=== PATIENT | male | born 1950 | race Caucasian/White ===

== ENCOUNTER 2017-01-29 15:43 | Inpatient (IN) ==
[2017-01-29] MEDS ORDERED: ZOFRAN IV ONE (16:01)
[2017-01-29] MEDS ORDERED: ZOFRAN ONE (16:01)
[2017-01-29] MEDS ORDERED: DUONEB (A & A) INH ONE (16:14)
[2017-01-29] MEDS ORDERED: ATIVAN IV ONE (16:14)
[2017-01-29] MEDS ORDERED: NS 1,000 ML IV ONE ×3 (16:14→19:43)
[2017-01-29] MEDS ORDERED: SOLU-MEDROL IV ONE (16:14)
[2017-01-29 16:45] LABS: BE -6.9 mmoll (-3.0-3.0); BLOOD TYPE ARTERIAL; DRAW SITE R BRACHIAL; O2(CT) 20.2 mL/dL (15.0-23.0); PCO2(98.6) 29 mmHg (35-45); PO2(98.6) 58 mmHg (60-100); SAMPLE BLOOD; pH(98.6) 7.37 (7.35-7.45)
[2017-01-29 16:47] LABS: ALLEN TEST NO; MODALITY CANNULA
[2017-01-29 16:56] LABS: AGAP 16; ALBUMIN 3.8 g/dL (3.5-5.0); ALKALINE PHOSPHATASE 72 U/L (32-122); BUN 14 mg/dL (8-22); CALCIUM 9.3 mg/dL (8.8-10.2); CHLORIDE 102 mmol/L (98-107); CK PROFILE 70 U/L (24-204); COSMO 280; GOT 27 U/L (10-34); GPT 14 U/L (10-44); POTASSIUM 3.2 mmol/L (3.5-5.1); SODIUM 140 mmol/L (136-145); TCO2 22 mmol/L (25-35)
--- NOTE | 2017-01-29 16:57 | EKG Report ---
Test Performed on : 01/29/2017 4:45:58 PM Test Reason : AMS Blood Pressure : / mmHG Vent. Rate : 084 BPM Atrial Rate : 084 BPM P-R Int : 158 ms QRS Dur : 110 ms QT Int : 400 ms P-R-T Axes : 050 024 113 degrees QTc Int : 472 ms Normal sinus rhythm. Nonspecific ST and T wave abnormality Prolonged QT Abnormal ECG No previous ECGs available Unconfirmed Result
[2017-01-29 17:04] LABS: EOS# 0.01 X1000 (0.0-0.7); EOS% 1.5 % (0.0-10.0); HEMATOCRIT 48.8 % (42.0-52.0); LYMPH# 0.24 X1000 (1.2-3.4); LYMPH% 36.9 % (20.5-51.1); MANUAL DIFF NEEDED? YES; MCH 29.3 PG (27-31); MCHC 32.8 g/dL (33-37); MCV 89.4 FL (81-99); MPV 11.7 FL (7.4-10.4); NEUT% 61.6 % (42.2-75.2); PLT 147 X1000 (130-400); RBC 5.46 XMIL (4.7-6.1)
[2017-01-29 17:07] LABS: INR 1.12 (0.86-1.15); PROTIME 14.7 Seconds (12.1-15.5)
[2017-01-29 17:08] LABS: PTT PL 27.7 Seconds (22.6-43.9)
--- NOTE | 2017-01-29 17:21 | Diag Imaging Result Doc PS360 ---
EXAM: CHEST-PORTABLE HISTORY: cough, chills TECHNIQUE: Portable COMPARISON: None FINDINGS: Sternal wires are present. Heart is not enlarged. There is increased density in the mid and lower left lung. No pleural effusions identified. IMPRESSION: Questionable small left lower lung infiltrate. Follow-up PA and lateral recommended. Electronically signed by Sekou Oliveira 01/29/2017 5:18 PM
[2017-01-29] MEDS ORDERED: VANCOMYCIN 1 GM/NS 1 GM/250 ML IVPB IV ONE (17:26)
[2017-01-29] MEDS ORDERED: ZOSYN 3.375 GM/NS 3.375 GM/50 ML IVPB IV ONE (17:26)
[2017-01-29 18:55] LABS: BANDS 20 % (0-1); LYMPHS 60 % (21-51)
--- NOTE | 2017-01-29 19:11 | Diag Imaging Result Doc PS360 ---
EXAM: ABD/PELVIS/PULM ARTERIES HISTORY: SOB/cough up blood. I am unsure as to the clinical information for the abdomen and pelvis. TECHNIQUE: CT chest with contrast. CT abdomen and pelvis with intravenous contrast. COMPARISON: None. FINDINGS: Chest: Sternal wires are present. The heart is not enlarged. No pleural effusions. No thoracic dissection. Normal opacification of the pulmonary arteries and their major branches. There are small mediastinal lymph nodes. No consolidation. No bronchiectasis. Abdomen and pelvis: There are several calcified stones within the gallbladder. No wall thickening or adjacent inflammation. There is fatty infiltration of the liver. Tiny nonspecific hypodense areas may be cysts or even hemangioma. Spleen is not enlarged. Normal pancreas and adrenal glands. There is a large left renal cyst measuring over 8 cm. No solid renal mass. No hydronephrosis. Moderate atherosclerosis. No aneurysmal dilatation to the aorta. No bowel obstruction. The appendix has been removed. No abscess. The urinary bladder is only mildly distended. The prostate is not enlarged. IMPRESSION: Chest: 1. No pulmonary emboli 2. No pneumonia Abdomen and pelvis: 1. Cholelithiasis 2. Fatty infiltration of the liver 3. Large left renal cyst 4. Appendectomy 5. Atherosclerosis Electronically signed by Sekou Oliveira 01/29/2017 7:08 PM
[2017-01-29 19:18] LABS: EOS# 0.01 X1000 (0.0-0.7); EOS% 1.1 % (0.0-10.0); HEMOGLOBIN 13.4 g/dL (14.0-18.0); LYMPH# 0.11 X1000 (1.2-3.4); LYMPH% 11.6 % (20.5-51.1); MANUAL DIFF NEEDED? NO; MCH 29.8 PG (27-31); MCHC 33.5 g/dL (33-37); MCV 88.9 FL (81-99); MONO# 0.02 X1000 (0.11-0.59); MONO% 2.1 % (1.7-9.3); MPV 11.5 FL (7.4-10.4); NEUT% 85.2 % (42.2-75.2); PLT 110 X1000 (130-400)
[2017-01-29 19:53] LABS: URINE SOURCE VOIDED
[2017-01-29 20:07] LABS: BILIRUBIN URINE NEGATIVE (NEGATIVE); BLOOD URINE NEGATIVE (NEGATIVE); CLARITY CLEAR (CLEAR); COLOR YELLOW; GLUCOSE URINE NEGATIVE (NEGATIVE); LEUKOCYTES URINE NEGATIVE (NEGATIVE); NITRITE URINE NEGATIVE (NEGATIVE); PROTEIN URINE 1+(30 mg/dL) mg/dL (NEGATIVE); URINE MICROSCOPIC NEEDED? YES; UROBILINOGEN URINE NORMAL
[2017-01-29 20:32] LABS: URINE EPITHELIAL CELLS <10 /HPF (<10)
[2017-01-29 20:33] LABS: URINE CAST NONE SEEN /LPF; URINE CRYSTAL NONE SEEN /HPF
[2017-01-29 22:56] LABS: MANUAL DIFF NEEDED? NO
[2017-01-29 23:24] LABS: HEMATOCRIT 42.2 % (42.0-52.0); HEMOGLOBIN 13.9 g/dL (14.0-18.0); LYMPH# 0.13 X1000 (1.2-3.4); LYMPH% 9.2 % (20.5-51.1); MCH 29.8 PG (27-31); MCHC 32.9 g/dL (33-37); MCV 90.6 FL (81-99); MONO# 0.15 X1000 (0.11-0.59); MONO% 10.6 % (1.7-9.3); MPV 11.6 FL (7.4-10.4); NEUT% 80.2 % (42.2-75.2); PLT 132 X1000 (130-400); RBC 4.66 XMIL (4.7-6.1)
[2017-01-29] MEDS ORDERED: DESYREL PO ONE (23:32)
[2017-01-29 23:33] LABS: POTASSIUM 3.3 mmol/L (3.5-5.1)
[2017-01-29] MEDS ORDERED: ZOFRAN IV PRN (23:35)
[2017-01-29] MEDS ORDERED: TYLENOL PO PRN (23:35)
[2017-01-29] MEDS ORDERED: KLOR-CON PO ONE (23:48)
[2017-01-30] MEDS: SOLU-MEDROL IV SCH ×4 (00:24→20:16)
[2017-01-30 04:33] LABS: BASO% 0.2 % (0.0-0.8); EOS# 0.02 X1000 (0.0-0.7); EOS% 0.5 % (0.0-10.0); HEMATOCRIT 41.1 % (42.0-52.0); LYMPH# 0.18 X1000 (1.2-3.4); LYMPH% 4.1 % (20.5-51.1); MANUAL DIFF NEEDED? YES; MCH 30.5 PG (27-31); MCHC 34.1 g/dL (33-37); MCV 89.5 FL (81-99); MONO# 0.34 X1000 (0.11-0.59); MONO% 7.8 % (1.7-9.3); MPV 11.5 FL (7.4-10.4); NEUT% 87.4 % (42.2-75.2); PLT 117 X1000 (130-400); RBC 4.59 XMIL (4.7-6.1)
[2017-01-30 04:45] LABS: AGAP 14; ALBUMIN 3.5 g/dL (3.5-5.0); ALKALINE PHOSPHATASE 39 U/L (32-122); BUN 13 mg/dL (8-22); CALCIUM 8.4 mg/dL (8.8-10.2); CHLORIDE 103 mmol/L (98-107); COSMO 281; GOT 27 U/L (10-34); GPT 12 U/L (10-44); POTASSIUM 3.8 mmol/L (3.5-5.1); SODIUM 139 mmol/L (136-145); TCO2 22 mmol/L (25-35); TOTAL BILIRUBIN 1.16 mg/dL (0.20-1.00); TOTAL PROTEIN 5.5 g/dL (6.3-8.3)
[2017-01-30 05:10] LABS: LDH 275 U/L (135-225)
[2017-01-30 05:30] LABS: SED RATE 5 mm/hr (0-15)
[2017-01-30 07:39] LABS: BANDS 4 % (0-1); EOS 1 % (1-10); LYMPHS 6 % (21-51); MONO 7 % (1-9); NRBC 1 % (0-0)
[2017-01-30] MEDS: TRICOR PO SCH (08:52)
[2017-01-30] MEDS: WELCHOL PO SCH ×2 (08:52→20:16)
[2017-01-30] MEDS: LOPRESSOR PO SCH ×2 (08:52→20:16)
[2017-01-30] MEDS ORDERED: TOPROL XL PO SCH (09:00)
--- NOTE | 2017-01-30 12:05 | HISTORY AND PHYSICAL ---
PRIMARY CARE PROVIDER: Dr. Jeny Edmondson. CRYOLITE RECOVERY OPERATOR: Dr. Jacky Dan. CHIEF COMPLAINT: Shortness of breath. Date and Time of History and Physical: 01/29/2017 at 2300. HISTORY OF PRESENT ILLNESS: Mr. Lopes is a 66-year-old male who presented to the ER at [facility] this afternoon at approximately 3:43 with complaints of dizziness, nausea, shortness of breath, and a cough with sputum that the patient states is pink-tinged. He also reported some chills. The patient states that these symptoms suddenly began after the patient took an Aldactazide tablet. This was a 20/25 mg tablet. The patient states that he first took this medicine approximately 1-1/2 months ago, on 01/03/2017, and had similar symptoms of nausea. The patient states that Dr. Dan, who is his industrial manufacturing technician, who prescribed this medication for him, was notified. He had the patient complete a new set of laboratory orders. He states that yesterday Dr. Dan's nurse called and told him that all his lab results looked good and for him to go ahead and take the Aldactazide again. The patient states that he took the tablet and immediately began having the symptoms that were previously described at approximately 1:30. The patient denies any rash, swelling of lips, tongue, or throat, or difficulty swallowing. He did report a brief period of abdominal pain that was epigastric in nature, but this has subsided at this time, though the patient does report some visual disturbances of a hazy appearance around lights as well as some pink spots in his visual field. The patient's initial white blood cell count at [facility] was 0.65. Previously, on the patient's ER visit on 01/03/2017, after taking the first dose of this medication, his white blood cell count was 3.92. The patient also takes medication of ramipril, as well. Other than the Aldactazide, he denies any new prescription medications. He denies any new [id number] medications. The patient states that up until the time approximately a month ago when he took this tablet and now today, that he has had no further symptoms. He denies any headache or chest pain, vomiting, diarrhea, or constipation. He denies any hematemesis, hematochezia, or melena. He denies any dysuria or urinary frequency. He also denies any pain, numbness, tingling, or swelling in extremities. At this time, the patient will be transferred to [facility] for admission for further treatment and evaluation of his pancytopenia. REVIEW OF SYSTEMS: A 12-point review of systems was conducted with the patient. All were negative except for pertinent positives mentioned in the above HPI. PAST MEDICAL HISTORY: 1. Coronary artery disease, status post coronary artery bypass graft and cardiac stent placement. 2. Hypertension. 3. Hyperlipidemia. PAST SURGICAL HISTORY: 1. Coronary artery bypass graft. The patient reports that his first CABG was in 1988. He reports that a few years later he had 6 cardiac stents placed. He reports that a few years after that, he had a second CABG performed, though he denies any new cardiac problems or procedures since then. 2. Right knee surgery x2, with the second being a total knee replacement. 3. Left total knee replacement. The patient is a former smoker. He reports that he quit smoking a few days before his first CABG. SOCIAL HISTORY: He denies any alcohol or illicit drug use. FAMILY HISTORY: His mother has a history of heart failure. He states that he does not know his father's past medical history. He had a brother who secondary to a brain tumor. ALLERGIES: The patient reports no known allergies. HOME MEDICATIONS: Aspirin 325 mg p.o. at bedtime, Welchol 625 mg p.o. b.i.d., fenofibrate 160 mg p.o. at bedtime, metoprolol tartrate 50mg p.o. BID, Zofran 8 mg p.o. q.8 hours p.r.n. for nausea, ramipril 10 mg p.o. at bedtime, Crestor 40 mg p.o. at bedtime, trazodone 100 mg p.o. at bedtime. DIAGNOSTIC DATA AND LABORATORY RESULTS: White blood cell count 0.95, hemoglobin 13.4, hematocrit 40, platelet count 110,000, segmented neutrophils 20, band neutrophils 20, and lymphocytes 60. ESR was 5. PT 14.7, INR 1.12, and PTT was 27.7. D-dimer was greater than 20. Sodium 140, potassium 3.2, chloride 102, bicarbonate 22, BUN 14, creatinine 1.0, with GFR greater than 60, glucose 96, calcium 9.3, magnesium 1.5. Liver function tests were within normal limits. CK 70. Troponin is less than 0.01. proBNP 857. Plasma lactate 5.1. Arterial blood gases were obtained on nasal cannula at 3L. pH 7.37, pCO2 of 29, PO2 of 8, HCO3 of 19.3 with a base excess of -6.9. O2 saturation is 93. Urinalysis was obtained via voided method and was positive for protein, though was otherwise within normal limits. Chest x-ray showed a questionable small left lower lung infiltrate. CT abdomen, pelvis, and pulmonary arteries showed no pulmonary emboli. No pneumonia. There was cholelithiasis noted as well as fatty infiltration of the liver. There were large left renal cysts noted, as well. There was evidence of an appendectomy and atherosclerosis. PHYSICAL EXAMINATION: VITAL SIGNS: Temperature 98 degrees, heart rate 71, respirations 20, blood pressure 147/58, and oxygen saturation is 95% nasal cannula at 3L. GENERAL: Mr. Gal Candelario is a pleasant 66-year-old male who is resting comfortably in the ICU inpatient bed. He was in no acute distress. He was awake, alert, and able to answer all questions appropriately. HEENT: Head is atraumatic, normocephalic. Pupils are equal, round, reactive to light, were 3 mm bilaterally and brisk. Conjunctivae are pink. Oral mucosa is moist. Oropharynx is clear. NECK: Supple. Trachea midline. No carotid bruits noted upon auscultation bilaterally. CARDIOVASCULAR: Patient has normal S1 and S2. No murmurs, gallops, or rubs appreciated, with a regular rate and rhythm. PULMONARY: Patient has symmetrical chest expansion bilaterally. Lung sounds are clear to auscultation in bilateral full singletary. The patient is in no acute respiratory distress. He had no stridor noted, as well. ABDOMEN: Soft, nontender, and nondistended. The patient does have a protuberant abdomen noted. Bowel sounds were present in all 4 quadrants and were slightly hypoactive. EXTREMITIES: No cyanosis, clubbing, or edema noted. Pulse, motor, and sensory are intact in all extremities. Pedal pulses are 3+ bilaterally. INTEGUMENTARY: Patient's skin is pink, warm, dry, and intact. No lesions or sores noted. NEUROLOGIC: Patient is alert and oriented x4. Cranial nerves 2-12 are grossly intact. ASSESSMENT AND PLAN: 1. Pancytopenia. This is of uncertain etiology at this time, though this could be possibly related to myelophthisis or a drug hypersensitivity reaction. The patient does take both ramipril and did take his new medication of Aldactazide, which can cause this , as well. We have held these medications. We will give solu-medrol 60mg IV every 6 hours. We have also placed orders for serum protein electrophoresis, complement C3 and C4, sedimentation rate, and LDH as well as blood cultures and urine cultures. The patient is afebrile at this time. Other than some previously reported chills, he denies any fever, body aches, or chills at this time. The patient has been placed on neutropenic precautions. We have placed a consult with Hematology and we will await their evaluation and further recommendations. 2. Hypokalemia. This is mild. The patient's potassium was 3.3. We have given him potassium chloride extended release 40 mEq and will recheck a BMP. 3. Coronary artery disease, status post coronary artery bypass graft and cardiac stent placement. We will continue the patient's aspirin. 4. Hypertension. We will continue the patient's metoprolol. 5. Hyperlipidemia. We will continue the patient's Welchol, fenofibrate, and Crestor. 6. Sleep apnea. The patient did forget to bring his CPAP machine, though we have instructed his family to bring this and he may wear this at night. 7. Deep vein thrombosis prophylaxis will be provided with SCDs at this time, given the patient's pancytopenia. 8. The patient was placed in the ICU with telemetry. He will have all vital signs per ICU protocol. His activity will be up with assistance. We will do strict intake and output. Neuro checks q.4 hours. Incentive spirometry. He will be on a Heart Healthy diet. We will repeat a CBC and CMP in the morning. We will also provide fluid resuscitation with normal saline at 150 mL/h. We will continue to monitor the patient's status closely. Further orders and recommendations pending hospital course, diagnostic studies, and physician evaluation. TIME SPENT: Critical care time with this patient was approximately 1 hour. Dictated by OTIS Sunshine for Hoda Tom MD Seen,examined and discussed plan of care with COMPUTER REPAIRER. cc: Hoda Tom MD [facility]
[2017-01-30 15:06] LABS: RETIC% 1.49 % (0.8-2.1); RETIC-HE 32.8 PG (28.2-36.6)
[2017-01-30 15:25] LABS: IRON SATURATION 7 %; LDH 220 U/L (135-225); TIBC 393 ug/dL; TOTAL IRON 26 ug/dL (53-167); UNBOUND IRON 367 ug/dL (112-346)
--- NOTE | 2017-01-30 15:53 | PROGRESS NOTE ---
DATE: 01/30/2017 SUBJECTIVE: Patient reports feeling fine. No shortness of breath. No chest pain noted. No fever or chills. OBJECTIVE: Vital Signs: Temperature 98.5 degrees, heart rate 63, respiratory rate 20. Blood pressure 138/69. O2 saturation 95% 3 L nasal cannula. General Examination: This is a 66-year-old male, lying in bed, in no acute distress. HEENT: Head is normocephalic and atraumatic. Anicteric sclerae and pale conjunctivae. Mucous membranes moist. Neck supple. No JVD noted. No carotid bruits. No lymphadenopathy. No thyromegaly. Cardiovascular: S1, S2 heard. No murmurs, gallops, or rubs. Regular rate and rhythm. Respiratory: Clear bilaterally to auscultation. No work of breathing or using accessory muscles. Abdomen is soft, nontender to palpation. Bowel sounds present. No organomegaly. Extremities: No clubbing, cyanosis, or edema. Peripheral pulses present in both legs. Neurological: Patient is alert and oriented x3, able to move her extremities. Cranial nerves 2-12 grossly normal. LABORATORY DATA: White cell count 4.34, hemoglobin 14.0, hematocrit 41.1, platelets 117,000 and neutrophil count absolute is 3700 with BMP that is unremarkable except glucose of 151. ASSESSMENT AND PLAN: 1. Pancytopenia. That apparently is another reaction from spironolactone. In any case, this condition is getting better and quickly resolved. At this time, hematology consult has been placed, so we will await recommendations and if they said that the patient is good to go, we are going to discharge this patient tomorrow. 2. Hypokalemia. We are going to repeat it. 3. Hypertension. We will continue with metoprolol. Blood pressure is controlled. 4. Hyperlipidemia. We will continue with Crestor, fenofibrate, and Welchol. 5. Sleep apnea. Patient is going to bring his own CPAP machine in the hospital. Overall, this patient is doing good with his numbers. He everything is fine, so we are going to transfer this patient to a regular room. cc: Maximino Dykes MD
[2017-01-30] MEDS ORDERED: DESYREL PO SCH (21:00)
[2017-01-30] MEDS ORDERED: CRESTOR PO SCH (21:00)
[2017-01-30] MEDS ORDERED: ASPIRIN PO SCH (21:00)
[2017-01-31] MEDS: SOLU-MEDROL IV SCH ×3 (02:40→14:20)
[2017-01-31 08:36] LABS: AGAP 11; BUN 16 mg/dL (8-22); CALCIUM 9.2 mg/dL (8.8-10.2); CHLORIDE 103 mmol/L (98-107); COSMO 287; POTASSIUM 3.9 mmol/L (3.5-5.1); SODIUM 141 mmol/L (136-145); TCO2 27 mmol/L (25-35)
[2017-01-31 09:15] LABS: BASO% 0.1 % (0.0-0.8); HEMATOCRIT 42.4 % (42.0-52.0); HEMOGLOBIN 14.5 g/dL (14.0-18.0); IMM GRAN# 0.05 X1000 (0.0-0.04); IMM GRAN% 0.5 % (0.0-0.5); LYMPH# 0.56 X1000 (1.2-3.4); LYMPH% 5.3 % (20.5-51.1); MANUAL DIFF NEEDED? YES; MCH 30.3 PG (27-31); MCHC 34.2 g/dL (33-37); MCV 88.7 FL (81-99); MONO# 0.74 X1000 (0.11-0.59); MPV 11.6 FL (7.4-10.4); NEUT% 87.1 % (42.2-75.2); PLT 144 X1000 (130-400); RBC 4.78 XMIL (4.7-6.1)
[2017-01-31 09:26] LABS: BANDS 14 % (0-1); LYMPHS 4 % (21-51); MONO 2 % (1-9)
[2017-01-31] MEDS: WELCHOL PO SCH (09:36)
[2017-01-31] MEDS: TRICOR PO SCH (09:36)
[2017-01-31] MEDS: LOPRESSOR PO SCH (09:36)
[2017-01-31] MEDS ORDERED: CYANOCOBALAMIN IM ONE (10:48)
[2017-01-31] MEDS ORDERED: VENOFER IV ONE (10:48)
[2017-01-31] MEDS ORDERED: VENOFER 300 MG in NS 250 ML IV ONE (11:00)
[2017-01-31 12:04] VITALS: BP 170/76
--- NOTE | 2017-01-31 14:17 | DISCHARGE SUMMARY ---
ADMISSION DATE: 01/29/2017 DISCHARGE DATE: 01/31/2017 DISCHARGE DIAGNOSES: 1. Pancytopenia secondary to spironolactone use. 2. Hypokalemia. Resolved. 3. Coronary artery disease. Stable. 4. Hypertension. 5. Hyperlipidemia. 6. Sleep apnea. PROCEDURES: Abdomen and pelvis CT showed no pulmonary emboli, no pneumonia. Cholelithiasis, fatty infiltration of the liver, large left renal cyst, appendectomy, and atherosclerosis. HOSPITAL COURSE: This is a 66-year-old male who presented to the ER this afternoon complaining of dizziness, nausea, and shortness of breath. He reports that he was coughing some pink-tinged sputum to the staff. For that condition, in the ER he was ordered an angiogram of the pulmonary arteries, which did not reveal any pulmonary embolism. Also, apparently, this patient had started recently, 2 days ago, spironolactone prescribed by his primary stenographic court reporter. When he was evaluated in the ER, also labs showed a profound leukopenia and mild anemia, so patient was admitted to the hospital for further evaluation and treatment. The next day and today, the day of discharge, all lab abnormalities like granulocytosis and leukopenia started getting better after we stopped spironolactone. This is one of the adverse reaction. So, at the time of discharge, the patient's CBC is completely normal. Initially, a Hematology/Oncology consult was requested, but considering that these labs are back to normal, I do not think we need that now. Patient is going to be discharged in stable condition and he is supposed to have followup with his primary care doctor in 1-2 weeks. DISPOSITION: Patient is being discharged in stable condition. No episodes of bleeding noted, no episodes of infections noted. DISCHARGE PHYSICAL EXAMINATION: Vital Signs: Temperature 97.7 degrees, heart rate 60, respiratory rate 17, blood pressure 170/76, and O2 saturation 96% on room air. General: This is a 66-year-old male, lying in bed in no acute distress. HEENT: Head is normocephalic and atraumatic. Anicteric sclerae and pale conjunctivae. Mucous membranes moist. Neck: Supple. No JVD noted. No carotid bruits. No lymphadenopathy. No thyromegaly. Cardiovascular: S1 and S2 heard. No murmurs, gallops, or rubs. Regular rate and rhythm. Respiratory: Clear bilaterally to auscultation. No work of breathing or using accessory muscles. Abdomen: Soft, nontender to palpation. Bowel sounds present. No organomegaly. Extremities: No clubbing, cyanosis, or edema. Peripheral pulses present in both legs. Neurologic: Patient alert and oriented x3. Able to move 4 extremities. Cranial nerves 2-12 are grossly normal. DISCHARGE MEDICATIONS: 1. Trazodone 100 mg p.o. at bedtime. 2. Crestor 40 mg p.o. at bedtime. 3. Ramipril 10 mg 1 tablet p.o. daily. 4. Fenofibrate 160 mg p.o. daily. 5. Colesevelam (Welchol) 3 tablets twice daily. 6. Aspirin/calcium carbonate 1 tablet p.o. at bedtime. 7. Zofran 8 mg 3 times per day as needed. 8. Metoprolol 50 mg p.o. b.i.d. FOLLOW UP: With his primary care physician in 1-2 weeks. cc: Maximino Dykes MD
--- NOTE | 2017-01-31 14:53 | CONSULTATION ---
DATE OF CONSULTATION: 01/30/2017 ADMITTING PHYSICIAN: Hoda Tom MD REQUESTING PHYSICIAN: Hoda Tom MD We appreciate this consult. CHIEF COMPLAINT: Pancytopenia. HISTORY OF PRESENT ILLNESS: Mr. Lopes is a very pleasant 66-year-old male, who presented to [facility] with complaints of dizziness and nausea and shortness of breath with a cough and sputum production that was pink tinged. The patient also reported chills at that time. The patient report that all these symptoms started after he took his Aldactazide that was prescribed to him. Upon presentation, the patient's white blood cell count at [facility] was 0.65. The patient does currently have a white blood cell count of 4.34 with a platelet count of 117,000. He is transferred to [facility] secondary to pancytopenia of questionable etiology, and we are consulted for the same. REVIEW OF SYSTEMS: A 14-point review of systems was obtained and is negative except as mentioned in HPI. PAST MEDICAL HISTORY: 1. Coronary artery disease. 2. Hypertension. 3. Hyperlipidemia. PAST SURGICAL HISTORY: 1. Coronary artery bypass grafting. 2. Right knee surgery x2. 3. Left knee total replacement. SOCIAL HISTORY: The patient does not use tobacco, alcohol or illicit drugs. FAMILY HISTORY: Significant for a brother who from a brain tumor. No other hematologic or oncologic problem noted. MEDICATIONS ON ADMISSION: 1. Aspirin. 2. Welchol. 3. Fenofibrate. 4. Metoprolol. 5. Zofran. 6. Ramipril. 7. Crestor. 8. Trazodone. ALLERGIES: The patient has no known drug allergies. LABORATORY DATA: Hemoglobin 14. hematocrit 41.1. White blood cell count 4.34. Platelets 117,000. ANC 3.79, sodium 139, potassium 3.8, chloride 103, CO2 is 22, BUN 13, creatinine 1.1. Glucose is 151. Calcium is 8.4. A CT of the abdomen and pelvis is pending. PHYSICAL EXAMINATION: General: Mr. Lopes is a very pleasant 66-year-old male lying supine in bed in no immediate distress. Vital Signs: Temperature 98.2 degrees, blood pressure 145/63, heart rate 71, respirations 17, O2 saturation is 95% on 3 L nasal cannula O2. HEENT: Normocephalic, atraumatic. Mucous membranes are pink and moist. Sclerae is anicteric. Extraocular movements intact. Neck: Supple. Lungs: Clear to auscultation bilaterally. Chest expansion is equal bilaterally. CARDIOVASCULAR: S1, S2 is heard without murmur rub or gallop. Abdomen: Soft, nondistended, nontender. Bowel sounds are positive in all quadrants. No rebound or guarding noted. Extremities: Without clubbing, cyanosis, or edema. Dermatologic: No rashes, bruises or lesions. Neurologic: The patient is awake, alert, and oriented x3. He has no focal motor deficit at this time. ASSESSMENT AND PLAN: 1. Pancytopenia. We will place the patient on reverse isolation as his presenting white blood cell count was quite low at 0.61. Additionally, we will initiate pancytopenia workup at this time. 2. Hypokalemia improved after repletion with a potassium 3.8. 3. Coronary artery disease, status post coronary artery bypass grafting. Cardiology is following. 4. Hypertension. Stable at this time with a blood pressure of 145/63. 5. Hyperlipidemia. Stable. Would continue medications. 6. We will follow along with you and make further recommendations pending outcomes. The above reflects the history, examination, assessment and plan of Dr. Floyd. Dictated by OTIS Antony for Brian Floyd MD cc: OTIS Antony MD
[2017-02-01] MEDS ORDERED: FOLIC ACID PO SCH (09:00)
== END 2017-01-31 14:29 | disposition home or self-care (01) ==
LOC: P.ED 15:43 → SUATTDRO 20:03 → ICU 20:03 → 3N 01-30 14:17
PROVIDERS: ATTEND Internal Medicine